=== PATIENT | female | born 1960 | race Hispanic/Latino ===

== ENCOUNTER → 2018-04-03 | Outpatient (CLI) | payer MEDICARE | END | disposition home or self-care (01) | LOC: OIH 11:44 | PROVIDERS: ATTEND Internal Medicine | DX: M77.32 Calcaneal spur, left foot (principal); M77.31 Calcaneal spur, right foot; M19.072 Primary osteoarthritis, left ankle and foot; M19.071 Primary osteoarthritis, right ankle and foot; M85.871 Other specified disorders of bone density and structure, right ankle and foot | CPT/HCPCS: 73120; 73620 ==